=== PATIENT | female | born 1990 | race Caucasian/White ===

== ENCOUNTER → 2018-10-10 13:09 | Outpatient (CLI) | payer OTHER, SELFPAY ==
[2018-10-10 18:59] LABS: HIV 1 and 2 Antibody NEGATIVE (NEGATIVE)
[2018-10-18 09:45] LABS: AFP, Serum 26.1 ng/mL; Calc Gestational Age 16.7; Maternal Weight 169 lbs; Mother Ethnic Origin CAUCASIAN; Number of Fetuses NOT GIVEN; Prev Pregnancies Down Syndrome N
== END ==
PROVIDERS: Visit Provider Obstetrics & Gynecology
DX: Z34.91 Encounter for supervision of normal pregnancy, unspecified, first trimester (principal); Z34.02 Encounter for supervision of normal first pregnancy, second trimester; Z3A.16 16 weeks gestation of pregnancy
CPT/HCPCS: 36415; 82105; 86703

== ENCOUNTER → 2018-11-05 13:38 | Outpatient (CLI) | payer OTHER, SELFPAY ==
--- NOTE | 2018-11-05 13:40 | DI.US.S_ITS ---
PROCEDURE: US OB >= 14 WEEKS FETUS INDICATIONS: ANATOMY SCAN OUTSIDE/PRIOR DATING DATA: Last menstrual period (LMP): 06/16/18. LMP-based estimated date of delivery (RANJEET): 03/23/19. First dating scan (date and location): 11/05/18. Estimated date of delivery (RANJEET) from first dating scan: 03/19/19. TECHNIQUE: Real-time scanning was performed of the fetus, with image documentation and biometric measurements. Endovaginal scanning: No COMPARISON: None. FINDINGS: General: A single living intrauterine gestation is present. Presentation: Breech. Placenta: Placental position is anterior, without previa. Amniotic fluid index: 14.3 cm, normal range is 5-24 cm. heart rate: 143 beats per minute. Maternal cervical canal: 3.5 cm long. Normal lower limit is 2.5 cm. biometrics: Biparietal diameter: 20 weeks 2 days Head circumference: 20 weeks 3 days Abdominal circumference: 21 weeks 2 days Femur length: 20 weeks 3 days Estimated gestational age from initial scan: not applicable. Composite gestational age from present scan: 20 weeks 6 days Estimated weight and percentile: 381 g; 76 percentile Measurement variability for biometric dating: +/- 7 days from 14 weeks to 15 weeks 6 days gestation, +/- 10 days from 16 weeks to 21 weeks 6 days gestation, +/- 2 weeks from 22 weeks to 27 weeks 6 days gestation, +/- 3 weeks for 28 weeks gestation or later. weight reference: 4500 g or EFW >90/95% is considered macrosomia or large for gestational age. EFW <10% is small for gestational age. EFW 5% or less is considered intra-uterine growth restriction. Anatomic survey: Neuro: Ventricles are non-dilated at less than 10 mm. Cisterna magna is normal at 3-11 mm. Cerebellum is normal in size and morphology. Nuchal skin fold: Normal at less than 6 mm between 14-21 weeks gestational age. Face: Nose and lips, facial profile are normal. Spine: No evidence for spina bifida. Heart: 4-chambered heart is present, with normal ventricular outflow tracts. Diaphragm: Diaphragm is intact. Stomach: Left-sided stomach is present. Kidneys: No hydronephrosis. Normal is less than 5 mm in 2nd trimester, less than 7 mm in 3rd trimester. Cord: 3-vessel cord has orthotopic insertion. Marginal placental cord insertion site 1.4 cm from the placental margin. Bladder: Normal in size. Extremities: All 4 extremities identified. IMPRESSION: 1. Single living IUP redemonstrated with composite gestational age of 20 weeks 6 days corresponding to ultrasound RANJEET of 03/19/19. 2. Normal anatomic survey. 3. Marginal cord insertion site. Dictated by: Zelalem Sebastian [facility] Interpreted: Piero Eastman MD on 11/07/2018 at 13:33 Approved by: Piero Eastman M.D. on 11/07/2018 at 14:04
== END ==
PROVIDERS: PCP Nurse Practitioner Gerontology; Visit Provider Obstetrics & Gynecology
DX: Z34.02 Encounter for supervision of normal first pregnancy, second trimester (principal); Z3A.20 20 weeks gestation of pregnancy
CPT/HCPCS: 76811

== ENCOUNTER → 2018-12-12 15:38 | Outpatient (CLI) | payer OTHER, SELFPAY ==
[2018-12-12 18:34] LABS: GTT (PREG) 1 Hour PP 50gm Dose 145 mg/dL (76-139)
[2018-12-12 18:49] LABS: Free T4, Direct Thyroxine 0.78 ng/dL (0.78-2.19); Hematocrit 37.2 % (36-46); Hemoglobin 12.6 g/dL (12.0-16.0)
[2018-12-12 19:03] LABS: Thyroid Stimulating Hormone 2.27 uIU/mL (0.47-4.68)
== END ==
PROVIDERS: PCP Nurse Practitioner Gerontology; Visit Provider Obstetrics & Gynecology
DX: Z34.02 Encounter for supervision of normal first pregnancy, second trimester (principal); Z3A.25 25 weeks gestation of pregnancy; E03.9 Hypothyroidism, unspecified; O99.280 Endocrine, nutritional and metabolic diseases complicating pregnancy, unspecified trimester; Z34.82 Encounter for supervision of other normal pregnancy, second trimester
CPT/HCPCS: 36415; 82950; 84439; 84443; 85014; 85018

== ENCOUNTER → 2018-12-21 07:08 | Outpatient (CLI) | payer OTHER, SELFPAY ==
[2018-12-21 08:21] LABS: Glucose Fasting Gestational 91 mg/dL (76-95)
[2018-12-21 09:14] LABS: Glucose 1 Hour Gest 215 mg/dL (76-180)
[2018-12-21 10:28] LABS: Glucose 2 Hour Gest 168 mg/dL (76-155)
[2018-12-21 10:43] LABS: Glucose Tol Interp,Gestational INTERPRETATION
[2018-12-21 11:16] LABS: Glucose 3 Hour Gest 110 mg/dL (76-140)
== END ==
PROVIDERS: PCP Nurse Practitioner Gerontology; Visit Provider Obstetrics & Gynecology
DX: O99.810 Abnormal glucose complicating pregnancy (principal); Z34.82 Encounter for supervision of other normal pregnancy, second trimester; Z3A.26 26 weeks gestation of pregnancy
CPT/HCPCS: 36415; 82951; 82952

== ENCOUNTER → 2019-02-25 14:03 | Outpatient (CLI) | payer OTHER, SELFPAY ==
[2019-02-26 12:38] LABS: Strep Grp B PCR POS for Grp B Strep
== END ==
PROVIDERS: PCP Nurse Practitioner Gerontology; Visit Provider Obstetrics & Gynecology
DX: Z34.83 Encounter for supervision of other normal pregnancy, third trimester (principal)
CPT/HCPCS: 87653

== ENCOUNTER 2019-03-06 12:44 | Outpatient (CLI) | payer OTHER, SELFPAY | END 2019-03-06 13:45 | disposition home or self-care (01) | LOC: LABOR 13:07 → OB 05-06 09:38 | PROVIDERS: PCP Nurse Practitioner Gerontology; Visit Provider Obstetrics & Gynecology | DX: O36.8130 Decreased fetal movements, third trimester, not applicable or unspecified (principal); Z3A.37 37 weeks gestation of pregnancy | CPT/HCPCS: 59025; G0378; G0379 ==

== ENCOUNTER 2019-03-14 19:04 | Observation (INO) | payer OTHER, SELFPAY ==
[2019-03-14 20:10] VITALS: BP 118/74
[2019-03-14 20:11] LABS: Add Manual Diff / Slide Review NO; Basophils Absolute Auto 0 /uL (0-100); Basophils Percent Auto 0.2 % (0-2); Eosinophils Absolute Auto 300 /uL (0-450); Eosinophils Percent Auto 2.3 % (2-4); Hematocrit 39.6 % (36-46); Hemoglobin 13.2 g/dL (12.0-16.0); Lymphocytes Absolute Auto 1700 /uL (1100-4500); Lymphocytes Percent Auto 15.2 % (25-40); Mean Corpuscular HGB Conc 33.4 % (30-36); Mean Corpuscular Hemoglobin 28.4 PG (26-34); Mean Corpuscular Volume 85.3 fL (80-100); Monocytes Absolute Auto 600 /uL (0-900); Monocytes Percent Auto 5.6 % (3-14); Neutrophils Absolute Auto 8700 /uL (1500-7000); Neutrophils Percent Auto 76.7 % (50-75); Platelet Count 204 X10^3/uL (150-400); Red Blood Cell Count 4.65 X10^6/uL (4.0-5.2); Red Cell Distribution Width 14.9 % (11.6-14.8); White Blood Cell Count 11.3 X10^3/uL (4.5-11.0)
[2019-03-14] MEDS: miSOPROStoL 25 MCG TABLET VAG (20:25)
[2019-03-15] MEDS: PENICILLIN G POTASSIUM 5,000,000 UNIT in DEXTROSE 5% IN WATER 250 ML IV (09:30)
[2019-03-15] MEDS: LACTATED RINGERS 1,000 ML 125 ML IV ×2 (09:50→15:14)
[2019-03-15] MEDS: OXYTOCIN PREMIX 30 UNIT/500 ML PLAST..BAG IV (09:58)
[2019-03-15] MEDS: PENICILLIN G POTASSIUM 3,000,000 UNIT/50 ML FROZ.PIGGY 100 UNIT IV ×2 (13:29→18:08)
--- NOTE | 2019-03-31 20:11 | PM.OBHP.1 ---
OB HPI Date/Time Date of admission: 03/14/19 Date Patient Seen: 03/15/19 Time Patient Seen: 07:30 History of Present Condition Chief complaint: Induction : 2 Para: 0 Estimated Date of Delivery: 03/22/19 Estimated Gestational Age (weeks): 39 Narrative: Augusta España is a 28 year old female Indications Indication for induction OB: maternal discomfort and other (GDM) Other reason(s) for admission: GDM History of Present care: good care, initiated at week # (8), number of visits (11) and pounds weight gain (31) Dating criteria: LMP confirmed by 1st trimester US Ultrasounds: normal 1st trimester US and normal mid trimester US Obstetrical complications: gestational diabetes (diel only) Medical complications: none Preadmission Labs Blood type: A (+) positive -: Antibody screen: negative, GBS status: positive, HBsAG: negative, HIV: negative and RPR/VDLR: negative -: Chlamydia screen: not detected and Gonorrhea screen: not detected -: Rubella: immune and Varicella: immune HCT: 38.6 HCAB: negative Quad screen: Normal Urine: Negative 1 hr GTT: 145 3 hr GTT: 1 hr (215), 2 hr (168) and 3 hr (110) Fasting blood glucose: 91 Prior (ies) History: SAb at 5 weeks Evaluation Evaluation Baseline heart rate: 140 Variability: Moderate (11-25) monitor accelerations: Present monitor decelerations: Absent Contraction Frequency (minutes): 5 Uterine Contraction Intensity: Mild Category of Tracing: I Cervical dilation (cm): 1 Cervical effacement (%): 75 station: -2 Laboratory results: Laboratory Tests 03/14/19 03/14/19 20:02 20:02 WBC 11.3 H RBC 4.65 Hgb 13.2 Hct 39.6 MCV 85.3 MCH 28.4 MCHC 33.4 RDW 14.9 H Plt Count 204 Neut % (Auto) 76.7 H Lymph % (Auto) 15.2 L [place] % (Auto) 5.6 Eos % (Auto) 2.3 Baso % (Auto) 0.2 Neut # (Auto) 8700 H Lymph # (Auto) 1700 [place] # (Auto) 600 Eos # (Auto) 300 Baso # (Auto) 0 Blood Type A Positive Antibody Screen Negative [facility] Medical History (Updated 03/18/19 @ 20:51 by Joya Altamirano MD) Anxiety (Chronic) Eczema (Chronic) Frequent UTI (Chronic) Family History (Updated 09/23/18 @ 07:43 by America Fonseca) Father Hyperlipidemia Hypertension Mother Diabetes mellitus Sister Hidradenitis suppurativa Grandfather COPD (chronic obstructive pulmonary disease) Hypertension Grandmother Hyperlipidemia Mental health problem Grandfather History of heart disease Social History (System 09/13/18 @ 08:39 by Lupe Clark) Smoking Status: Former smoker Meds Home Medications and Allergies Home Medications Medication Instructions Recorded Confirmed Type levothyroxine 75 mcg tablet 75 mcg PO DAILY 09/11/18 03/19/19 History prenat.vits,robert,[id number] 1 tab PO DAILY 09/11/18 03/19/19 History Double Electric breast Pump and #1 each 02/21/19 03/19/19 Rx Supplies oxycodone-acetaminophen [Percocet] 1 tab PO Q4-6H PRN #30 tab 03/20/19 Rx Allergies Allergy/AdvReac Type Severity Reaction Status Date / Time No Known Drug Allergies Allergy Verified 09/13/18 08:39 Exam Vital Signs (past 8 hours): Generally: Patient in no acute distress. Mild contractions. Lungs: Clear to auscultation bilaterally Cardiovascular: Regular rate and rhythm Fundal height: 41 cm Estimated weight: 8-1/2 lb Extremities: Negative Homans, trace edema Objective Labs Result Diagrams: 03/14/19 20:02 Assessment and Plan Assessment and Plan Assessment and Plan narrative: Assessment: 28-year-old 2 para 0 at 39 weeks gestation for induction of labor after cervical ripening with Cytotec GBS positive Plan: Group B strep prophylaxis Pitocin per protocol 2 If no cervical change by this evening, patient to go home and come back on another day. Time Spent with Patient Total time spent with greater than 50% in coordination of care (as documented) at patient's floor/unit and/or counseling patient:: 15-24 minutes
== END 2019-03-15 19:30 | disposition home or self-care (01) ==
PROVIDERS: Admitting Provider Obstetrics & Gynecology; PCP Nurse Practitioner Gerontology; Visit Provider Obstetrics & Gynecology
DX: O24.410 Gestational diabetes mellitus in pregnancy, diet controlled (principal); O99.820 Streptococcus B carrier state complicating pregnancy; Z3A.39 39 weeks gestation of pregnancy
CPT/HCPCS: 36415; 85025; 86850; 86900; 86901; 97035; G0378; G0379; J2540; J2590

== ENCOUNTER 2019-03-18 18:55 | Inpatient (IN) | payer OTHER, SELFPAY ==
[2019-03-18] MEDS: miSOPROStoL 25 MCG TABLET VAG (21:25)
[2019-03-19] MEDS: miSOPROStoL 25 MCG TABLET VAG (01:38)
[2019-03-19 06:01] LABS: Add Manual Diff / Slide Review NO; Basophils Absolute Auto 0 /uL (0-100); Basophils Percent Auto 0.5 % (0-2); Eosinophils Absolute Auto 300 /uL (0-450); Eosinophils Percent Auto 3.2 % (2-4); Hematocrit 41.6 % (36-46); Lymphocytes Absolute Auto 1800 /uL (1100-4500); Lymphocytes Percent Auto 20.3 % (25-40); Mean Corpuscular HGB Conc 33.8 % (30-36); Mean Corpuscular Hemoglobin 28.6 PG (26-34); Mean Corpuscular Volume 84.7 fL (80-100); Monocytes Absolute Auto 600 /uL (0-900); Monocytes Percent Auto 6.2 % (3-14); Neutrophils Absolute Auto 6200 /uL (1500-7000); Neutrophils Percent Auto 69.8 % (50-75); Platelet Count 176 X10^3/uL (150-400); Red Blood Cell Count 4.91 X10^6/uL (4.0-5.2)
[2019-03-19] MEDS: PENICILLIN G POTASSIUM 5,000,000 UNIT in DEXTROSE 5% IN WATER 250 ML IV (07:30)
[2019-03-19] MEDS: LACTATED RINGERS 1,000 ML 100 ML IV ×3 (07:31→13:11)
[2019-03-19] MEDS: OXYTOCIN PREMIX 30 UNIT/500 ML PLAST..BAG IV (07:31)
[2019-03-19] MEDS: FENT 2MCG/ML BUPIV 0.125% EPI 200 MCG/100 ML PLAST..BAG EPIDURAL (10:25)
[2019-03-19] MEDS: PENICILLIN G POTASSIUM 3,000,000 UNIT/50 ML FROZ.PIGGY 100 UNIT IV ×2 (11:14→15:16)
--- NOTE | 2019-03-19 16:39 | PM.OBHP.1 ---
OB HPI Date/Time Date of admission: 03/18/19 Date Patient Seen: 03/19/19 Time Patient Seen: 07:30 History of Present Condition Chief complaint: : 2 Para: 0 Estimated Date of Delivery: 03/22/19 Estimated Gestational Age (weeks): 39+4 Narrative: Augusta España is a 28 year old female 2 para 0 at 39-,4/7 weeks gestation for induction of labor due to gestational diabetes Indications Indication for induction OB: medical complication (Gestational diabetes) History of Present care: good care, initiated at week # (12), number of visits (11) and pounds weight gain Dating criteria: LMP confirmed by 1st trimester US Ultrasounds: normal 1st trimester US and normal mid trimester US Abnormal ultrasound findings: Marginal cord insertion Obstetrical complications: gestational diabetes (diet only) Medical complications: none Preadmission Labs Blood type: A (+) positive -: Antibody screen: positive, GBS status: negative, HBsAG: negative, HIV: negative and RPR/VDLR: negative -: Chlamydia screen: not detected and Gonorrhea screen: not detected -: Rubella: immune and Varicella: immune HCT: 37.2 Quad screen: Normal 1 hr GTT: 145 3 hr GTT: 1 hr (215), 2 hr (168) and 3 hr (110) Fasting blood glucose: 91 Prior (ies) History: SAB 5 wks, no D&C Evaluation Evaluation Baseline heart rate: 130 Variability: Moderate (11-25) monitor accelerations: Present monitor decelerations: Absent Contraction Frequency (minutes): 5 Uterine Contraction Intensity: Mild Category of Tracing: I Cervical dilation (cm): 2 Cervical effacement (%): 60 station: -2 Laboratory results: Laboratory Tests 03/19/19 03/19/19 05:30 05:30 WBC 9.0 RBC 4.91 Hgb 14.0 Hct 41.6 MCV 84.7 MCH 28.6 MCHC 33.8 RDW 15.0 H Plt Count 176 Neut % (Auto) 69.8 Lymph % (Auto) 20.3 L [place] % (Auto) 6.2 Eos % (Auto) 3.2 Baso % (Auto) 0.5 Neut # (Auto) 6200 Lymph # (Auto) 1800 [place] # (Auto) 600 Eos # (Auto) 300 Baso # (Auto) 0 Blood Type A Positive Antibody Screen Negative [facility] Medical History (Updated 03/18/19 @ 20:51 by Joya Altamirano MD) Anxiety (Chronic) Eczema (Chronic) Frequent UTI (Chronic) Family History (Updated 09/23/18 @ 07:43 by America Fonseca) Father Hyperlipidemia Hypertension Mother Diabetes mellitus Sister Hidradenitis suppurativa Grandfather COPD (chronic obstructive pulmonary disease) Hypertension Grandmother Hyperlipidemia Mental health problem Grandfather History of heart disease Social History (System 09/13/18 @ 08:39 by Lupe Clark) Smoking Status: Former smoker Meds Home Medications and Allergies Home Medications Medication Instructions Recorded Confirmed Type levothyroxine 75 mcg tablet 75 mcg PO DAILY 09/11/18 03/14/19 History prenat.vits,robert,[id number] 1 tab PO DAILY 09/11/18 03/19/19 History blood-glucose meter #1 each 12/31/18 03/19/19 Rx lancets-blood glucose strips 30 #100 each 12/31/18 03/19/19 Rx gauge and blood glucose strips combo pack Double Electric breast Pump and #1 each 02/21/19 03/19/19 Rx Supplies Allergies Allergy/AdvReac Type Severity Reaction Status Date / Time No Known Drug Allergies Allergy Verified 09/13/18 08:39 Exam Vital Signs (past 8 hours): Generally: No distress with contractions Lungs: Clear to auscultation bilaterally Cardiovascular: Regular rate and rhythm Fundal height: 41 cm Estimated weight: 8-1/2 lb Extremities: 1+ DTRs, negative edema Objective Labs Result Diagrams: 03/19/19 05:30 Labs: Laboratory Results - last 24 hr 03/19/19 03/19/19 05:30 05:30 WBC 9.0 RBC 4.91 Hgb 14.0 Hct 41.6 MCV 84.7 MCH 28.6 MCHC 33.8 RDW 15.0 H Plt Count 176 Neut % (Auto) 69.8 Lymph % (Auto) 20.3 L [place] % (Auto) 6.2 Eos % (Auto) 3.2 Baso % (Auto) 0.5 Neut # (Auto) 6200 Lymph # (Auto) 1800 [place] # (Auto) 600 Eos # (Auto) 300 Baso # (Auto) 0 Blood Type A Positive Antibody Screen Negative Assessment and Plan Assessment and Plan Assessment and Plan narrative: Assessment: 28-year-old 2 para 0 at 39-,4/7 weeks gestation with gestational diabetes for induction of labor Status post 2 doses of Cytotec last night Cervix favorable Plan: Pitocin per protocol 2 Epidural as necessary Expected management to spontaneous vaginal delivery Time Spent with Patient Total time spent with greater than 50% in coordination of care (as documented) at patient's floor/unit and/or counseling patient:: 15-24 minutes
--- NOTE | 2019-03-19 16:48 | PM.OBPRVD ---
 Events: Gestational Diabetes (Diet only) Labor & Delivery Delivery date: 03/19/19 Cervical ripening method: per misoprostal protocol Induction method: per pitocin protocol Delivery monitor: external FHT and external uterine Route of delivery: vacuum extraction Indication for instrumentation: maternal exhaustion (Baby stuck at +2 station) Episiotomy description: None L&D Laceration Description: Vaginal - 2nd Degree Delivery repair: vicryl and chromic Estimated blood loss (mL): 100 Anesthesia type: Epidural Complications: None Narrative: Patient complete and pushed for 90 minutes. Due to maternal exhaustion and baby stuck at +2 station, vacuum applied. With 2 contractions the vertex delivered over an intact perineum at 4:12 p.m.. No nuchal cord. The remainder of the body delivered without difficulty and was placed on mom's abdomen. The cord was double clamped and cut after it stopped pulsing. Cord bloods were obtained. Pitocin was given in the IV fluids. Placenta delivered intact with a 3 vessel cord at 4:18 p.m.. Fundus was massaged to firm. Second-degree vaginal laceration was repaired with 2 0 Vicryl and 3 0 chromic in the usual fashion. Hemostasis was achieved. Estimated blood loss 100 cc. Apgars 9 at 1 minute and 9 at 5 minutes. . Epidural analgesia. Mom and infant stable to recovery. Plan for aftercare: To routine care
[2019-03-19] MEDS: IBUPROFEN 600 MG TABLET PO (19:03)
[2019-03-19] MEDS: OXYCODONE/ACETAMINOPHEN 5/325 TABLET 1 TAB PO (19:56)
[2019-03-19] MEDS: DERMOPLAST SPRAY 20% 60 ML 1 SPRAY TOP (19:57)
[2019-03-20] MEDS: OXYCODONE/ACETAMINOPHEN 5/325 TABLET 1 TAB PO ×2 (00:27→02:00)
[2019-03-20] MEDS: IBUPROFEN 600 MG TABLET PO ×3 (00:27→12:02)
[2019-03-20 06:28] LABS: Hematocrit 36.8 % (36-46); Hemoglobin 12.6 g/dL (12.0-16.0)
[2019-03-20] MEDS: OXYCODONE/ACETAMINOPHEN 5/325 TABLET 2 TAB PO ×3 (06:34→14:27)
[2019-03-20] MEDS: DOCUSATE 100 MG CAPSULE PO (10:31)
[2019-03-20] MEDS: PRENATAL VIT,CALC/IRON/FOLIC 1 TABLET 1 TAB PO (10:31)
--- NOTE | 2019-03-26 05:00 | PM.OBDS.1 ---
Discharge Providers Provider Date of admission: 03/18/19 18:55 Discharge Date: 03/20/19 Primary care physician: MEME Martinez Discharge provider: Joya Altamirano MD Summary Hospital Course Date Patient Seen: 03/20/19 Time Patient Seen: 11:00 Procedures: Cervical ripening Induction of labor with Pitocin Artificial rupture of membranes Epidural analgesia Second-degree perineal laceration repair Vacuum assisted vaginal delivery Hospital Course: Patient is a 28-year-old who presented on March 18, 2019 for cervical ripening. On March 19, 2019 she was started on Pitocin. Artificial rupture of membranes was performed. She progressed to complete dilation and had a vacuum assisted vaginal delivery. She had a second-degree perineal laceration which was repaired. Her course was unremarkable and she was discharged home on March 20, 2019. Peripartum Data Infant Delivery Method: Assisted Delivery (Vacuum) Laceration description: Perineal - 2nd Degree Episiotomy description: None Procedures: Vacuum assisted vaginal delivery Epidural analgesia Artificial rupture of membranes Second-degree laceration repair Cervical ripening Pitocin augmentation of labor complications: none Status at Discharge Cognitive/behavioral status at discharge: oriented Functional status at discharge: independent ambulation Overall status at discharge: patient is progressing back to baseline Time Spent with Patient Time attestation: Total time spent providing and/or coordinating discharge services: Time spent: Less than 30 minutes Objective Labs Result Diagrams: 03/20/19 06:15 Discharge Plan Discharge Plan Patient Disposition: Home Discharge comment: Call with fever, chills or bleeding vaginally more than a pad in an hour Discharge orders & Medications Prescriptions: New oxycodone-acetaminophen [Percocet] 5-325 mg tablet 1 tab PO Q4-6H PRN (Reason: pain) Qty: 30 RF: 0 Continued (DME) Double Electric breast Pump and Supplies See Rx Instructions .ROUTE .MEDSUPPLY Qty: 1 RF: 0 levothyroxine [Synthroid] 75 mcg tablet 75 mcg PO DAILY RF: 0 prenat.vits,robert,kyp-izhu-[id number] tablet 1 tab PO DAILY RF: 0 Discontinued (DME) blood-glucose meter Misc See Rx Instructions .ROUTE .MEDSUPPLY Qty: 1 RF: 0 (DME) lancets-blood glucose strips 30 gauge combo pack See Rx Instructions .ROUTE .MEDSUPPLY Qty: 100 RF: 2 Follow up/Referrals: Joya Altamirano MD [Physician] - 6 Weeks (please call tomorrow for a 6week check [phone]) Diet/Activity/Treatments Diet: Regular Activity: No intercourse Skin/Wound/Dressing Care Report to your healthcare provider any signs of infection, such as:: chills, fever, increased pain and unusual drainage Visit Report/Discharge Packet Instructions: DI for Labor and Delivery, Vaginal Stand Alone Forms: Discharge: Care Visit Report Forms: Patient Portal/API, Stroke Signs & Symptoms Discharge Data Primary Care Provider: Marta Wheeler Discharges patient from system. Discharge Date/Time: 03/20/19 16:24
== END 2019-03-20 16:24 | disposition home or self-care (01) | DRG 807 ==
LOC: LABOR 03-19 08:30 → AC 03-19 08:33
PROVIDERS: Admitting Provider Obstetrics & Gynecology; PCP Nurse Practitioner Gerontology; Visit Provider Obstetrics & Gynecology
DX: O24.429 Gestational diabetes mellitus in childbirth, unspecified control (principal); Z37.0 Single live birth; Z3A.39 39 weeks gestation of pregnancy; O70.1 Second degree perineal laceration during delivery
CPT/HCPCS: 01967; 36415; 59400; 85014; 85018; 85025; 86850; 86900; 86901; G0379; J2540; J2590

== ENCOUNTER → 2019-08-23 14:26 | Outpatient (CLI) | payer OTHER, SELFPAY ==
[2019-08-23 16:23] LABS: Free T4, Direct Thyroxine 0.58 ng/dL (0.78-2.19)
== END ==
PROVIDERS: PCP Nurse Practitioner Family; Referring Provider Nurse Practitioner Family; Visit Provider Nurse Practitioner Family
DX: E03.9 Hypothyroidism, unspecified (principal)
CPT/HCPCS: 36415; 84439; 84443

== ENCOUNTER → 2019-10-06 09:57 | Outpatient (CLI) | payer OTHER, SELFPAY ==
[2019-10-10 01:10] LABS: COVID19 Sendout Not Detected (Not Detected)
== END ==
PROVIDERS: PCP Nurse Practitioner Family; Visit Provider Physician Assistant
DX: Z03.818 Encounter for observation for suspected exposure to other biological agents ruled out (principal)
CPT/HCPCS: 87635

== ENCOUNTER → 2019-11-02 11:54 | Outpatient (CLI) | payer OTHER, SELFPAY ==
[2019-11-02 14:02] LABS: Thyroid Stimulating Hormone 5.53 uIU/mL (0.47-4.68)
== END ==
PROVIDERS: PCP Nurse Practitioner Family; Referring Provider Nurse Practitioner Family; Visit Provider Nurse Practitioner Family
DX: E03.9 Hypothyroidism, unspecified (principal)
CPT/HCPCS: 36415; 84443

== ENCOUNTER → 2019-12-19 15:37 | Outpatient (CLI) | payer OTHER, SELFPAY ==
[2019-12-19 17:48] LABS: Free T4, Direct Thyroxine 1.07 ng/dL (0.78-2.19)
[2019-12-19 18:01] LABS: Thyroid Stimulating Hormone 1.58 uIU/mL (0.47-4.68)
== END ==
PROVIDERS: PCP Nurse Practitioner Family; Referring Provider Nurse Practitioner Family; Visit Provider Nurse Practitioner Family
DX: E03.9 Hypothyroidism, unspecified (principal)
CPT/HCPCS: 36415; 84439; 84443

== ENCOUNTER → 2020-04-20 15:03 | Outpatient (CLI) | payer OTHER, SELFPAY ==
[2020-04-20 15:38] LABS: Hematocrit 40.8 % (36-46); Hemoglobin 13.9 g/dL (12.0-16.0); Mean Corpuscular Hemoglobin 30.4 PG (26-34); Mean Corpuscular Volume 89.6 fL (80-100); Platelet Count 257 X10^3/uL (150-400); Red Blood Cell Count 4.56 X10^6/uL (4.0-5.2); Red Cell Distribution Width 13.1 % (11.6-14.8); White Blood Cell Count 6.5 X10^3/uL (4.5-11.0)
[2020-04-20 16:06] LABS: Alanine Aminotransferase 11 IU/L (<35); Albumin 4.3 g/dL (3.5-5.0); Albumin Globulin Ratio 1.4 (1.0-2.8); Alkaline Phosphatase 65 U/L (38-126); Aspartate Aminotransferase 19 IU/L (14-36); BUN Creatinine Ratio 25.4 (6-22); Bilirubin Total 0.1 mg/dL (0.2-1.3); Blood Urea Nitrogen 17 mg/dL (7-17); Calcium 9.5 mg/dL (8.4-10.2); Carbon Dioxide 28 mmol/L (22-32); Chloride 106 mmol/L (98-107); Estimated Glomerular Filt Rate > 60.0 mL/min (>60); Globulin 3.1 g/dL (1.7-4.1); Glucose 130 mg/dL (70-100); HEMOLYSIS < 15 (0-50); Potassium 3.9 mmol/L (3.4-5.1); Sodium 137 mmol/L (137-145); Total Protein 7.4 g/dL (6.3-8.2)
[2020-04-20 16:40] LABS: Thyroid Stimulating Hormone 1.74 uIU/mL (0.47-4.68)
== END ==
PROVIDERS: PCP Nurse Practitioner Family; Referring Provider Nurse Practitioner Family; Visit Provider Nurse Practitioner Family
DX: Z00.00 Encounter for general adult medical examination without abnormal findings (principal); E03.9 Hypothyroidism, unspecified
CPT/HCPCS: 36415; 80053; 84443; 85027

== ENCOUNTER → 2020-04-22 17:04 | Outpatient (CLI) | payer OTHER, SELFPAY | PROVIDERS: PCP Nurse Practitioner Family; Visit Provider Nurse Practitioner Family | DX: R73.9 Hyperglycemia, unspecified (principal) | CPT/HCPCS: 83036 ==

== ENCOUNTER → 2020-06-17 15:35 | Outpatient (CLI) | payer BC, SELFPAY ==
[2020-06-17 16:10] LABS: Add Manual Diff / Slide Review NO; Basophils Absolute Auto 0 /uL (0-100); Basophils Percent Auto 0.2 % (0-2); Eosinophils Absolute Auto 100 /uL (0-450); Hematocrit 40.9 % (36-46); Hemoglobin 13.6 g/dL (12.0-16.0); Lymphocytes Absolute Auto 1900 /uL (1100-4500); Lymphocytes Percent Auto 19.9 % (25-40); Mean Corpuscular HGB Conc 33.2 % (30-36); Mean Corpuscular Volume 90.5 fL (80-100); Monocytes Absolute Auto 500 /uL (0-900); Monocytes Percent Auto 5.9 % (3-14); Neutrophils Absolute Auto 6800 /uL (1500-7000); Platelet Count 252 X10^3/uL (150-400); Red Blood Cell Count 4.52 X10^6/uL (4.0-5.2); Red Cell Distribution Width 12.9 % (11.6-14.8); White Blood Cell Count 9.4 X10^3/uL (4.5-11.0)
[2020-06-17 16:13] LABS: Appearance Urine UA CLEAR; Bilirubin Urine UA NEGATIVE (NEGATIVE); Color Urine UA YELLOW; Glucose Urine UA NEGATIVE (Negative); Ketones Urine UA NEGATIVE (NEGATIVE); Leukocyte Esterase Urine UA NEGATIVE (NEGATIVE); Nitrite Urine UA NEGATIVE (Negative); Occult Blood Urine UA NEGATIVE (Negative); Protein Urine UA NEGATIVE (Negative); Urobilinogen Urine UA 0.2 E.U./dL (0.2)
[2020-06-17 16:49] LABS: Free T4, Direct Thyroxine 1.12 ng/dL (0.78-2.19)
[2020-06-17 17:02] LABS: Thyroid Stimulating Hormone 4.87 uIU/mL (0.47-4.68)
[2020-06-17 19:01] LABS: Hepatitis B Surface Antigen NEGATIVE s/c (NEGATIVE); Rubella Antibody IgG 72.4 IU/mL (>15)
[2020-06-17 19:17] LABS: HIV 1 & 2 Ab/Ag 4th Gen Combo NEGATIVE (NEGATIVE); Hep C Virus Ab w/Reflex Quant NEGATIVE s/c (NEGATIVE)
[2020-06-18 12:09] LABS: RPR Screen Non Reactive (Non Reactive); Varicella IgG Antibody 285 index (Immune >165)
== END ==
PROVIDERS: PCP Nurse Practitioner Family; Referring Provider Obstetrics & Gynecology; Visit Provider Obstetrics & Gynecology
DX: Z34.81 Encounter for supervision of other normal pregnancy, first trimester (principal)
CPT/HCPCS: 36415; 80055; 81003; 84439; 84443; 86787; 86803; 86850; 86900; 86901; 87086; 87389

== ENCOUNTER → 2020-07-01 14:30 | Outpatient (CLI) | payer BC, SELFPAY | PROVIDERS: PCP Nurse Practitioner Family; Referring Provider Obstetrics & Gynecology; Visit Provider Obstetrics & Gynecology | DX: Z34.81 Encounter for supervision of other normal pregnancy, first trimester (principal); Z36.0 Encounter for antenatal screening for chromosomal anomalies | CPT/HCPCS: 36415; 81420 ==

== ENCOUNTER → 2020-07-15 19:25 | Outpatient (ROUT) | payer BC, SELFPAY ==
[2020-07-15 21:03] LABS: Urine N gonorrhoeae NOT DETECTED
[2020-07-15 21:18] LABS: Urine Chlamydia NOT DETECTED
== END ==
PROVIDERS: Obstetrics & Gynecology; PCP Nurse Practitioner Family; Visit Provider Nurse Practitioner Family
DX: Z34.81 Encounter for supervision of other normal pregnancy, first trimester (principal); Z3A.12 12 weeks gestation of pregnancy
CPT/HCPCS: 87491; 87591

== ENCOUNTER → 2020-08-13 13:22 | Outpatient (CLI) | payer BC, SELFPAY ==
[2020-08-13 16:59] LABS: Free T4, Direct Thyroxine 1.01 ng/dL (0.78-2.19)
[2020-08-13 17:13] LABS: Thyroid Stimulating Hormone 3.31 uIU/mL (0.47-4.68)
[2020-08-15 23:37] LABS: AFP Value 26.7 ng/mL (.); Gest Age on Col Date 16.3 weeks (.); Gestational Age Ultrasound (.); Insulin Dep Diabetes No (.); OSBR Risk 1IN 10000 (.); Results Report (.); Test Results *Screen Negative* (.)
== END ==
PROVIDERS: PCP Nurse Practitioner Family; Referring Provider Obstetrics & Gynecology; Visit Provider Obstetrics & Gynecology
DX: Z34.82 Encounter for supervision of other normal pregnancy, second trimester (principal); Z3A.16 16 weeks gestation of pregnancy
CPT/HCPCS: 36415; 82105; 84439; 84443

== ENCOUNTER → 2020-09-03 15:50 | Outpatient (CLI) | payer BC, SELFPAY ==
--- NOTE | 2020-09-03 15:51 | DI.US.S_ITS ---
PROCEDURE: US OB >= 14 WEEKS FETUS INDICATIONS: 20 week FAS OUTSIDE/PRIOR DATING DATA: Last menstrual period (LMP): 04/21/20 . LMP-based estimated date of delivery (RANJEET): 01/26/21 . First dating scan (date and location): 06/17/20 . Estimated date of delivery (RANJEET) from first dating scan: 01/27/21 . TECHNIQUE: Real-time scanning was performed of the fetus, with image documentation and biometric measurements. Endovaginal scanning: Not needed COMPARISON: [facility], , OB >= 14 WEEKS FETUS, 08/13/2020, 13:21. [facility], , OB >= 14 WEEKS FETUS, 03/06/2019, 12:35. FINDINGS: General: A single living intrauterine gestation is present. Presentation: Breech. Placenta: Placental position is posterior , without previa. Amniotic fluid index: 14.7 cm, normal range is 5-24 cm. heart rate: 139 beats per minute. Maternal cervical canal: 4.6 cm long. Normal lower limit is 2.5 cm. biometrics: Biparietal diameter: 4.3 cm, 19 weeks 0 days Head circumference: 15.8 cm, 18 weeks 5 days Abdominal circumference: 13.8 cm, 19 weeks 1 day Femur length: 3.0 cm, 19 weeks 3 days Estimated gestational age from initial scan: 19 weeks 1 day Composite gestational age from present scan: 19 weeks 1 day Estimated weight 280 g Measurement variability for biometric dating: +/- 7 days from 14 weeks to 15 weeks 6 days gestation, +/- 10 days from 16 weeks to 21 weeks 6 days gestation, +/- 2 weeks from 22 weeks to 27 weeks 6 days gestation, +/- 3 weeks for 28 weeks gestation or later. weight reference: 4500 g or EFW >90/95% is considered macrosomia or large for gestational age. EFW <10% is small for gestational age. EFW 5% or less is considered intra-uterine growth restriction. Anatomic survey: Neuro: Ventricles are non-dilated at less than 10 mm. Cisterna magna is normal at 3-11 mm. Cerebellum is normal in size and morphology. Nuchal skin fold: Normal at less than 6 mm between 14-21 weeks gestational age. Face: Nose and lips, facial profile are normal. Spine: No evidence for spina bifida. Heart: 4-chambered heart is present, with normal ventricular outflow tracts. Diaphragm: Diaphragm is intact. Stomach: Left-sided stomach is present. Kidneys: No hydronephrosis. Normal is less than 5 mm in 2nd trimester, less than 7 mm in 3rd trimester. Cord: 3-vessel cord has orthotopic insertion. Bladder: Normal in size. Extremities: All 4 extremities identified. IMPRESSION: Single living intrauterine gestation with breech presentation and appropriate interval growth with current estimated gestational age 19 weeks 1 day and with delivery date projected to be centered on 01/27/21 from 1st trimester OB ultrasound. Dictated by: Piero Eastman M.D. on 09/04/2020 at 11:24 Approved by: Piero Eastman M.D. on 09/04/2020 at 11:26
== END ==
PROVIDERS: PCP Nurse Practitioner Family; Referring Provider Obstetrics & Gynecology; Visit Provider Obstetrics & Gynecology
DX: Z34.82 Encounter for supervision of other normal pregnancy, second trimester (principal); Z3A.19 19 weeks gestation of pregnancy
CPT/HCPCS: 76811

== ENCOUNTER → 2020-10-12 10:58 | Outpatient (CLI) | payer BC, SELFPAY ==
[2020-10-12 12:44] LABS: Hematocrit 37.7 % (36-46); Hemoglobin 12.6 g/dL (12.0-16.0)
[2020-10-12 12:54] LABS: Alanine Aminotransferase 10 IU/L (<35); Albumin 3.3 g/dL (3.5-5.0); Albumin Globulin Ratio 1.1 (1.0-2.8); Alkaline Phosphatase 46 U/L (38-126); Aspartate Aminotransferase 18 IU/L (14-36); BUN Creatinine Ratio 21.6 (6-22); Bilirubin Total 0.2 mg/dL (0.2-1.3); Blood Urea Nitrogen 8 mg/dL (7-17); Calcium 8.4 mg/dL (8.4-10.2); Carbon Dioxide 20 mmol/L (22-32); Chloride 107 mmol/L (98-107); Estimated Glomerular Filt Rate > 60.0 mL/min (>60); Glucose 161 mg/dL (70-100); HEMOLYSIS < 15 (0-50); Potassium 3.7 mmol/L (3.4-5.1); Sodium 132 mmol/L (137-145); Total Protein 6.3 g/dL (6.3-8.2)
[2020-10-12 12:55] LABS: GTT (PREG) 1 Hour PP 50gm Dose 160 mg/dL (76-139)
[2020-10-12 13:28] LABS: Thyroid Stimulating Hormone 2.11 uIU/mL (0.47-4.68)
== END ==
PROVIDERS: PCP Nurse Practitioner Family; Referring Provider Obstetrics & Gynecology; Visit Provider Obstetrics & Gynecology
DX: Z34.82 Encounter for supervision of other normal pregnancy, second trimester (principal); E03.9 Hypothyroidism, unspecified; Z3A.24 24 weeks gestation of pregnancy
CPT/HCPCS: 36415; 80053; 82950; 84443; 85014; 85018

== ENCOUNTER → 2020-12-29 15:13 | Outpatient (CLI) | payer BC, SELFPAY ==
[2020-12-30 15:37] LABS: Strep Grp B PCR NEG for Grp B Strep
== END ==
PROVIDERS: PCP Nurse Practitioner Family; Visit Provider Obstetrics & Gynecology
DX: Z34.83 Encounter for supervision of other normal pregnancy, third trimester (principal); Z3A.36 36 weeks gestation of pregnancy
CPT/HCPCS: 87653

== ENCOUNTER 2021-01-17 17:51 | Inpatient (IN) | payer BC, SELFPAY ==
[2021-01-17] MEDS: DINOPROSTONE VAG (CERVIDIL) 10 MG VAG (19:00)
[2021-01-17 19:03] LABS: Add Manual Diff / Slide Review NO; Basophils Absolute Auto 0 /uL (0-100); Basophils Percent Auto 0.4 % (0-2); Eosinophils Absolute Auto 200 /uL (0-450); Eosinophils Percent Auto 1.7 % (2-4); Hematocrit 35.9 % (36-46); Lymphocytes Absolute Auto 1500 /uL (1100-4500); Lymphocytes Percent Auto 15.7 % (25-40); Mean Corpuscular HGB Conc 33.4 % (30-36); Mean Corpuscular Hemoglobin 28.7 PG (26-34); Mean Corpuscular Volume 85.8 fL (80-100); Monocytes Absolute Auto 600 /uL (0-900); Monocytes Percent Auto 5.7 % (3-14); Neutrophils Absolute Auto 7500 /uL (1500-7000); Neutrophils Percent Auto 76.5 % (50-75); Platelet Count 218 X10^3/uL (150-400); Red Blood Cell Count 4.19 X10^6/uL (4.0-5.2); White Blood Cell Count 9.8 X10^3/uL (4.5-11.0)
[2021-01-17 19:42] LABS: COVID19 -Nasal RAPID Negative (Negative)
[2021-01-18] MEDS: OXYTOCIN PREMIX 30 UNIT/500 ML PLAST..BAG IV (08:58)
[2021-01-18] MEDS: LACTATED RINGERS 1,000 ML 100 ML IV ×3 (08:59→15:30)
--- NOTE | 2021-01-18 09:22 | PC.NURSE ---
Patient took own Levithyroxine 100 mcg at 0740 today 01/18/21
--- NOTE | 2021-01-18 18:00 | PM.OBHP.IH.1 ---
OB HPI Date/Time Date of admission: 01/18/21 Date Patient Seen: 01/18/21 Time Patient Seen: 08:30 History of Present Condition Chief complaint: RANJEET Calculator Estimated Delivery Date Method Current WG Current Estimate 01/26/21 LMP (Certain) 38w 6d Other Estimates 01/27/21 Ultrasound #1 38w 5d Estimated Gestational Age (weeks): 38+6 : 2 Para: 1 Indications Indication for induction OB: gestational diabetes Preadmission Labs Last OB Lab Results: Blood Type A Positive 01/17/21 18:40 01/17/21 Antibody Screen Negative 01/17/21 18:40 01/17/21 Hematocrit 35.9 % (36-46) L 01/17/21 18:40 01/17/21 Hemoglobin 12.0 g/dL (12.0-16.0) 01/17/21 18:40 01/17/21 Hepatitis B Surface Antigen Negative s/c (NEGATIVE) 06/17/20 15:49 06/17/20 Hepatitis C Antibody Negative s/c (NEGATIVE) 06/17/20 15:49 06/17/20 Rubella Antibody 72.4 IU/mL (>15) 06/17/20 15:49 06/17/20 Varicella-Zoster IgG Antibody 285 index (Immune >165) 06/17/20 15:49 06/17/20 Glucose 1 Hour 160 mg/dL (76-139) H 10/12/20 11:10 10/12/20 Group B Streptococcus (PCR) Neg for grp b strep 12/29/20 15:13 12/29/20 Prior (ies) Past Pregnancies Del. Date GA/Weeks Labor Lgth Wt Sex Route Outcome Anesthesia Place Delv Breastfeed Preg Comp Name 03/19/19 39.4 5 8 lb 7 oz Male vaginal live - full term epidural IH w/ Adarsh 1 year gestational diabetes other Robin Delivery Date: 03/19/19 Induced for GDM, cervical ripening & pitocin. Baby needed suctioning after . 2nd degree w repair. [place] [facility] Medical History (Updated 12/13/20 @ 17:11 by Joya Altamirano MD) Acquired hypothyroidism (2017) Anxiety Closed fracture of sacrum without spinal cord injury with routine healing (~08/2017) Depression with anxiety Dysplastic nevus Eczema Frequent UTI Gestational diabetes (~2018) Heart palpitations (~2014) Left hand fracture (~2009) Primiparous in first trimester Skin lesion Skin nodule Vaginal delivery Surgical History (Updated 06/11/20 @ 15:56 by [place] RN) [place] teeth extracted (~2010) Family History (Updated 06/11/20 @ 16:05 by [place] RN) Father Hyperlipidemia Hypertension Diabetes mellitus Metabolic syndrome Mother Diabetes mellitus Asthma Hyperthyroidism Gestational diabetes Sister Hidradenitis suppurativa Grandfather COPD (chronic obstructive pulmonary disease) Hypertension Grandmother Hyperlipidemia Mental health problem Severe anxiety Hyperthyroidism Grandfather History of heart disease Hypertension Hyperlipidemia Status post cardiac surgery Sister Asthma Sister Asthma Grandmother No problems noted. Social History (System 09/13/18 @ 08:39 by Lupe Clark) marital status: number of children: 1 household members: spouse and children lives independently: Yes caregiver/support person: No housing: house pets and animals: Yes (2 dogs: safe. 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 ) second hand exposure: No alcohol intake: former (Pre-: occasional, a few drinks on weekends. ) substance use type: does not use during the past year weight has: remained stable well-balanced diet: daily or most days (Aware of GDM diet. Given info re IH online nutrition class; consult if desired.) daily servings fruits/ve-4 caffeine: No Type(s) of exercise: walking and normal ROM and activity frequency: daily duration: 15-30 minutes/day Meds Home Medications and Allergies Home Medications Medication Instructions Recorded Confirmed Type levothyroxine 100 mcg capsule 100 mcg PO DAILY #90 cap 04/23/20 01/13/21 Rx prenat.vits,robert,apn-tzqq-[id number] 1 tab PO DAILY 06/11/20 01/13/21 History blood-glucose meter #1 ea 10/15/20 01/13/21 Rx lancets 30 gauge and blood glucose #100 ea 10/15/20 01/13/21 Rx strips combo pack Allergies Allergy/AdvReac Type Severity Reaction Status Date / Time No Known Drug Allergies Allergy Verified 01/13/21 10:55 Objective Labs Result Diagrams: 01/17/21 18:40 Labs: Laboratory Results - last 24 hr 01/17/21 01/17/21 01/17/21 18:40 18:40 18:40 WBC 9.8 RBC 4.19 Hgb 12.0 Hct 35.9 L MCV 85.8 MCH 28.7 MCHC 33.4 RDW 14.0 Plt Count 218 Neut % (Auto) 76.5 H Lymph % (Auto) 15.7 L [place] % (Auto) 5.7 Eos % (Auto) 1.7 L Baso % (Auto) 0.4 Neut # (Auto) 7500 H Lymph # (Auto) 1500 [place] # (Auto) 600 Eos # (Auto) 200 Baso # (Auto) 0 SARS-CoV-2 (PCR) Negative Blood Type A Positive Antibody Screen Negative
--- NOTE | 2021-01-18 18:01 | P.PCNOB_ITS ---
Events: Labor Induction Labor & Delivery Delivery date: 01/18/21 Intrapartal Events: Deceleration (Variables) Cervical ripening method: per Cervidil protocol Induction method: per pitocin protocol Delivery augmentation: rupture of membranes Delivery monitor: external FHT and external uterine Route of delivery: Episiotomy description: None L&D Laceration Description: Perineal - 1st Degree and Vaginal - 1st Degree Delivery repair: chromic Estimated blood loss (mL): 50 Anesthesia Type: Epidural Complications: Low BP's after epidural [place] Baby 1: gender: Female Presentation: vertex Position: Left Occiput Anterior Placenta delivery description: Spontaneous Cord Vessel Description: 3 Vessels, Nuchal Cord, Loose and Reduced score (1 min): 8 score (5 min): 9 weight: 7 lb 6 oz Narrative: Mom complete and pushed for 31 minutes. At 1641, a live female infant delivered spontaneously in the ALANNAH presentation over an intact perineum. A loose nuchal cord x1 was reduced on the perineum. The remainder of the body delivered without difficulty and was placed on mom's abdomen. After the cord stopped pulsing, the cord was double clamped and cut. Cord bloods were obtained. Pitocin was given in the IV fluids. The placenta delivered intact with a three-vessel cord at 1647. Fundus was massaged to firm. A first-degree vaginal/perineal laceration was repaired in the usual fashion with 3-0 chromic. Hemostasis was achieved. Estimated blood loss 50 cc. Apgars 8 at 1 minute and 9 at 5 minutes. Epidural analgesia. . Mom and infant stable to recovery. Plan for aftercare: Routine care
--- NOTE | 2021-01-18 18:12 | PM.OBPNLAB ---
Date/Time Date Patient Seen: 01/18/21 Pelvic Exam station: -2
[2021-01-18] MEDS: LANOLIN OINT 7 GM 1 APPLIC TOP (21:21)
[2021-01-18] MEDS: DERMOPLAST SPRAY 20% 60 ML 1 SPRAY TOP (21:22)
[2021-01-18] MEDS: IBUPROFEN 600 MG TABLET PO (21:23)
[2021-01-18] MEDS: ACETAMINOPHEN 325 MG TABLET 650 MG PO (21:23)
[2021-01-19] MEDS: OXYCODONE IR 5 MG TABLET PO ×2 (02:01→12:02)
[2021-01-19] MEDS: IBUPROFEN 600 MG TABLET PO ×2 (05:42→11:58)
[2021-01-19] MEDS: ACETAMINOPHEN 325 MG TABLET 650 MG PO ×2 (05:43→11:57)
[2021-01-19 06:59] LABS: Hematocrit 36.2 % (36-46)
[2021-01-19] MEDS: LEVOTHYROXINE 100 MCG TABLET PO (07:52)
[2021-01-19] MEDS: DOCUSATE 100 MG CAPSULE PO (11:57)
[2021-01-19] MEDS: PRENATAL VIT,CALC/IRON/FOLIC 1 TABLET 1 TAB PO (11:57)
[2021-01-19 14:32] VITALS: BP 95/68; PULSE 76; RESP 16; TEMP 37.1
== END 2021-01-19 16:31 | disposition home or self-care (01) | DRG 807 ==
PROVIDERS: Admitting Provider Obstetrics & Gynecology; PCP Nurse Practitioner Family; Referring Provider Obstetrics & Gynecology; Visit Provider Obstetrics & Gynecology
DX: O24.420 Gestational diabetes mellitus in childbirth, diet controlled (principal); Z37.0 Single live birth; Z3A.38 38 weeks gestation of pregnancy; O76 Abnormality in fetal heart rate and rhythm complicating labor and delivery; O70.0 First degree perineal laceration during delivery; O69.81X0 Labor and delivery complicated by cord around neck, without compression, not applicable or unspecified; Z20.822 Contact with and (suspected) exposure to COVID-19; O99.284 Endocrine, nutritional and metabolic diseases complicating childbirth; E03.9 Hypothyroidism, unspecified
CPT/HCPCS: 01967; 36415; 59050; 59200; 59400; 85014; 85018; 85025; 86850; 86900; 86901; 87635; C9803; G0379; J2590

== ENCOUNTER → 2021-03-09 14:15 | Outpatient (CLI) | payer BC, SELFPAY ==
[2021-03-09 14:47] LABS: Hemoglobin 14.4 g/dL (12.0-16.0); Mean Corpuscular HGB Conc 33.4 % (30-36); Mean Corpuscular Hemoglobin 28.3 PG (26-34); Mean Corpuscular Volume 84.5 fL (80-100); Platelet Count 255 X10^3/uL (150-400); Red Cell Distribution Width 14.8 % (11.6-14.8); White Blood Cell Count 6.4 X10^3/uL (4.5-11.0)
[2021-03-09 15:26] LABS: Alanine Aminotransferase 69 IU/L (<35); Albumin 4.3 g/dL (3.5-5.0); Albumin Globulin Ratio 1.3 (1.0-2.8); Alkaline Phosphatase 66 U/L (38-126); Aspartate Aminotransferase 40 IU/L (14-36); BUN Creatinine Ratio 18.7 (6-22); Bilirubin Total 0.4 mg/dL (0.2-1.3); Blood Urea Nitrogen 17 mg/dL (7-17); Calcium 9.5 mg/dL (8.4-10.2); Carbon Dioxide 28 mmol/L (22-32); Chloride 106 mmol/L (98-107); Estimated Glomerular Filt Rate > 60.0 mL/min (>60); Globulin 3.2 g/dL (1.7-4.1); Glucose 94 mg/dL (70-100); HEMOLYSIS < 15 (0-50); Potassium 3.8 mmol/L (3.4-5.1); Sodium 140 mmol/L (137-145); Total Protein 7.5 g/dL (6.3-8.2)
[2021-03-09 15:44] LABS: Free T4, Direct Thyroxine 1.46 ng/dL (0.78-2.19)
[2021-03-09 16:12] LABS: Thyroid Stimulating Hormone < 0.015 uIU/mL (0.47-4.68)
== END ==
PROVIDERS: PCP Nurse Practitioner Family; Referring Provider Nurse Practitioner Family; Visit Provider Nurse Practitioner Family
DX: Z00.00 Encounter for general adult medical examination without abnormal findings (principal); E03.9 Hypothyroidism, unspecified
CPT/HCPCS: 36415; 80053; 84439; 84443; 85027

== ENCOUNTER → 2021-04-02 08:49 | Outpatient (CLI) | payer BC, SELFPAY ==
[2021-04-02 10:43] LABS: Glucose Fasting 86 mg/dL (70-100)
[2021-04-02 10:54] LABS: Glucose 1 Hour 171 mg/dL (70-170)
[2021-04-02 11:16] LABS: Glucose Tol Interpretation INTERPRETATION
[2021-04-02 12:06] LABS: Glucose 2 Hour 97 mg/dL (70-140)
== END ==
PROVIDERS: PCP Nurse Practitioner Family; Referring Provider Obstetrics & Gynecology; Visit Provider Obstetrics & Gynecology
DX: Z86.32 Personal history of gestational diabetes (principal)
CPT/HCPCS: 36415; 82951; 82952

== ENCOUNTER → 2021-04-20 14:29 | Outpatient (CLI) | payer BC, SELFPAY ==
[2021-04-20 15:34] LABS: Alanine Aminotransferase 30 IU/L (<35); Albumin 4.5 g/dL (3.5-5.0); Albumin Globulin Ratio 1.5 (1.0-2.8); Alkaline Phosphatase 65 U/L (38-126); Aspartate Aminotransferase 25 IU/L (14-36); Bilirubin Total 0.3 mg/dL (0.2-1.3); Bilirubin Unconjugated 0.3 mg/dL (0.0-1.1); Globulin 3.1 g/dL (1.7-4.1); HEMOLYSIS < 15 (0-50); Total Protein 7.6 g/dL (6.3-8.2)
[2021-04-20 16:09] LABS: Free T4, Direct Thyroxine 1.29 ng/dL (0.78-2.19)
[2021-04-20 16:20] LABS: Hemoglobin A1C% w Est Avg Glu 5.4 % (4.0-6.0)
[2021-04-20 16:23] LABS: Thyroid Stimulating Hormone 0.264 uIU/mL (0.47-4.68)
== END ==
PROVIDERS: PCP Nurse Practitioner Family; Referring Provider Nurse Practitioner Family; Visit Provider Nurse Practitioner Family
DX: Z86.32 Personal history of gestational diabetes (principal); R74.8 Abnormal levels of other serum enzymes; E03.9 Hypothyroidism, unspecified
CPT/HCPCS: 36415; 80076; 83036; 84439; 84443

== ENCOUNTER → 2021-06-20 10:38 | Outpatient (CLI) | payer BC, SELFPAY ==
--- NOTE | 2021-06-20 10:39 | DI.MRI.S_ITS ---
PROCEDURE: MR BRAIN (IAC) WWO CON INDICATIONS: Sudden idiopathic hearing loss, left ear TECHNIQUE: Noncontrast sagittal T1 spin echo, axial FLAIR, axial gradient echo, axial diffusion and ADC through the brain. Axial thin-slice 3D CISS, coronal TruFISP, axial T1 spin echo with fat saturation through the internal auditory canals. After the administration of contrast, thin slice axial and coronal T1 spin echo with fat saturation through the internal auditory canals, and axial T1 spin echo with fat saturation through the brain. COMPARISON: None. FINDINGS: Image quality: Excellent. Cerebellopontine angles: No cerebellopontine angle masses. Inner ear structures appear normally formed. No suspicious enhancement in the internal auditory canal or along the course of the 7th cranial nerve. CSF spaces: Ventricles are normal in size and shape. No extra-axial fluid collections. Basal cisterns are patent. Brain: No intracranial bleeds or mass effects. Street-white matter interface is intact. No abnormal intracranial enhancement. Diffusion weighted images demonstrate no acute ischemic insults. Brainstem appears normal. Normal intravascular flow voids are present. Skull and face: Calvarial marrow signal is normal. Orbits appear normal. Sinuses: Sinuses and mastoids are clear. IMPRESSION: Unremarkable MRI of the internal auditory canals without evidence of mass lesion or focal inflammation Approved by: Raghu Wasserman M.D. on 06/20/2021 at 11:48
== END ==
PROVIDERS: PCP Nurse Practitioner Family; Referring Provider Internal Medicine; Visit Provider Internal Medicine
DX: H91.22 Sudden idiopathic hearing loss, left ear (principal)
CPT/HCPCS: 70553; A9579

== ENCOUNTER → 2021-07-08 15:17 | Outpatient (CLI) | payer BC, SELFPAY ==
[2021-07-08 17:23] LABS: Alanine Aminotransferase 15 IU/L (<35); Albumin 4.7 g/dL (3.5-5.0); Albumin Globulin Ratio 1.5 (1.0-2.8); Alkaline Phosphatase 63 U/L (38-126); Aspartate Aminotransferase 22 IU/L (14-36); BUN Creatinine Ratio 19.7 (6-22); Bilirubin Total 0.4 mg/dL (0.2-1.3); Blood Urea Nitrogen 26 mg/dL (7-17); Carbon Dioxide 25 mmol/L (22-32); Chloride 104 mmol/L (98-107); Estimated Glomerular Filt Rate 56 mL/min (>60); Globulin 3.2 g/dL (1.7-4.1); Glucose 84 mg/dL (70-100); HEMOLYSIS < 15 (0-50); Potassium 3.7 mmol/L (3.4-5.1); Sodium 140 mmol/L (137-145); Total Protein 7.9 g/dL (6.3-8.2)
[2021-07-08 17:38] LABS: Free T4, Direct Thyroxine 1.37 ng/dL (0.78-2.19)
[2021-07-08 17:52] LABS: Thyroid Stimulating Hormone 4.02 uIU/mL (0.47-4.68)
== END ==
PROVIDERS: PCP Nurse Practitioner Family; Referring Provider Nurse Practitioner Family; Visit Provider Nurse Practitioner Family
DX: E03.9 Hypothyroidism, unspecified (principal)
CPT/HCPCS: 36415; 80053; 84439; 84443

== ENCOUNTER → 2021-07-30 07:17 | Outpatient (CLI) | payer BC, SELFPAY ==
[2021-07-30 08:54] LABS: Alanine Aminotransferase 11 IU/L (<35); Albumin 4.7 g/dL (3.5-5.0); Albumin Globulin Ratio 1.4 (1.0-2.8); Alkaline Phosphatase 64 U/L (38-126); Aspartate Aminotransferase 20 IU/L (14-36); Bilirubin Total 0.7 mg/dL (0.2-1.3); Blood Urea Nitrogen 20 mg/dL (7-17); Calcium 9.1 mg/dL (8.4-10.2); Carbon Dioxide 25 mmol/L (22-32); Chloride 102 mmol/L (98-107); Estimated Glomerular Filt Rate > 60 mL/min (>60); Globulin 3.3 g/dL (1.7-4.1); Glucose 94 mg/dL (70-100); HEMOLYSIS < 15 (0-50); Sodium 138 mmol/L (137-145)
[2021-07-30 11:34] LABS: Free T3, Triiodothyronine Free 3.04 pg/mL (2.77-5.27)
[2021-07-30 11:48] LABS: TSH w/ Reflex to FT4 2.65 uIU/mL (0.47-4.68)
== END ==
PROVIDERS: Referring Provider Nurse Practitioner; Visit Provider Nurse Practitioner
DX: E03.9 Hypothyroidism, unspecified (principal); N17.9 Acute kidney failure, unspecified
CPT/HCPCS: 36415; 80053; 84443; 84481